=== PATIENT | female | born 1965 | race Caucasian/White ===

== ENCOUNTER 2021-12-30 11:52 | Emergency (ER) | payer MEDICAID, SELFPAY | END 2021-12-30 14:05 | disposition left against medical advice (07) | PROVIDERS: Emergency Provider Emergency Medicine | DX: L23.7 Allergic contact dermatitis due to plants, except food (principal) ==

== ENCOUNTER 2023-07-02 23:03 | Emergency (ER) | payer SELFPAY ==
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
[2023-07-02 23:18] VITALS: BP 100/58; O2SAT 98; BMI 21.8
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
--- NOTE | 2023-07-02 23:34 | PC.NURSE ---
[place] [employer] at bedside
[2023-07-02 23:56] VITALS: BP 101/62; PULSE 86; RESP 16; TEMP 36.9; O2SAT 97
--- NOTE | 2023-07-03 01:51 | PC.NURSE ---
cleaned facial aea and mouth
[2023-07-03 02:01] VITALS: BP 100/45; PULSE 93; RESP 16; O2SAT 93
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
== END 2023-07-03 02:42 | disposition home or self-care (01) ==
PROVIDERS: Emergency Provider Internal Medicine
DX: S02.2XXA Fracture of nasal bones, initial encounter for closed fracture (principal); Y04.2XXA Assault by strike against or bumped into by another person, initial encounter; Y93.89 Activity, other specified; Y92.9 Unspecified place or not applicable; Y99.9 Unspecified external cause status
CPT/HCPCS: 70450; 70486; 99284

== ENCOUNTER 2025-02-25 10:43 | Emergency (ER) | payer OTHER, SELFPAY ==
[2025-02-25 11:09] VITALS: BP 137/62; PULSE 64; RESP 16; TEMP 36.2; O2SAT 99; BMI 22.6
--- OUTSIDE RECORDS SUMMARY | 2025-02-25 11:27 | XMS_ITS | Clinical Summary ---
Author Organization [facility] ity Address [address] [place] [address] Care Team Providers Care Manager Rental Name Role Phone Unavailable Primary Care Provider Unavailabl e Social History Tobacco Use Types Packs/Day Years Used Date Smoking Tobacco: Never Assessed Comments Unknown Sex and Gender Information Value Date Recorded Sex Assigned at Not on file Legal Sex Female 8:52 PM EST Gender Identity Not on file Sexual Orientation Not on file Plan of Treatment Health Maintenance Due Date Last Done Comments Breast Cancer Screening 1965 DTaP,Tdap,and Td Vaccines (1 - Tdap) 10/09/1983 Cervical Cancer Screening: P ap Smear 1985 Pneumococcal Vaccine: 50+ Ye ars (1 of 1 - PCV) 2014 Zoster Vaccines (1 of 2) 2014 Colorectal Cancer Screening: Colonoscopy 08/27/2023 HIV Screening 08/27/2023 Hepatitis C Screening 08/27/2023 Social Influencers of Health Screening 08/27/2023 COVID-19 Vaccine (1 - 2023-2 5 season) 2024 Depression Screening 08/02/2024 Influenza Vaccine (#1) 2025 RSV Immunization Adult Patie nts (1 - 1-dose 75+ series) 10/09/2039 HIB Vaccines Aged Out No longer eligi ble based on patient's age to complete this topic HPV Vaccines Aged Out No longer eligi ble based on patient's age to complete this topic Hepatitis A Vaccines Aged Out No long er eligible based on patient's age to complete this topic Hepatitis B Vaccines Aged Out No long er eligible based on patient's age to complete this topic IPV Vaccines Aged Out No longer eligi ble based on patient's age to complete this topic MMR Vaccines Aged Out No longer eligi ble based on patient's age to complete this topic Meningococcal ACWY Vaccine Aged Out N o longer eligible based on patient's age to complete this topic Meningococcal B Vaccine Aged Out No l onger eligible based on patient's age to complete this topic RSV Immunization Patients Un josefina 20 months Aged Out No longer eligible b ased on patient's age to complete this topic Varicella Vaccines Aged Out No longer eligible based on patient's age to complete this topic
--- OUTSIDE RECORDS SUMMARY | 2025-02-25 11:27 | XMS_ITS | Clinical Summary ---
Author Organization [facility] Address [address] [phone] Phone Care Team Providers Care Monitoring Tech Name Role Phone Kaycee Bah MD Primary Care Provider Social History Tobacco Use Types Packs/Day Years Used Date Smoking Tobacco: Never Assessed Education Answer Date Recorded Are you interested in more education? Not on cookie e 11/28/2022 Are you concerned about learning? Not on file 11/28/2022 No 11/28/2022 No 11/28/2022 Digital Access Answer Date Recorded No 12/29/2022 No 12/29/2022 Reliable internet access at home? Not on file 12/29/2022 Device with a working camera? Not on file Comments Unknown Sex and Gender Information Value Date Recorded Sex Assigned at Not on file Legal Sex Female 2:18 PM EDT Gender Identity Not on file Sexual Orientation Not on file Plan of Treatment Not on file Medical Devices Not on file Insurance [facility] [place] [place] [facility] [place] [address] [facility] Care Teams Monitoring Tech Relationship Specialty Start Date End Date Kaycee Bah MD [address] [place] [phone] [email or web address] PCP - General Family Medicine 05/01/22 Additional Source Comments The information contained in this document represents components of the legal health record. It is not the complete legal health record.[facility]
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
[2025-02-25 11:45] VITALS: BP 137/62; PULSE 64; RESP 16; TEMP 36.2; O2SAT 99
== END 2025-02-25 11:49 | disposition home or self-care (01) ==
PROVIDERS: Emergency Provider Emergency Medicine
DX: L02.415 Cutaneous abscess of right lower limb (principal); M79.604 Pain in right leg
CPT/HCPCS: 99282; 99283